=== PATIENT | female | born 1960 | race Caucasian/White ===

== ENCOUNTER 2017-08-16 12:42 | Emergency (ER) | payer MEDICAID ==
[2017-08-16] MEDS ORDERED: Aspirin 81 MG Tab.Chew PO ONE (13:07)
[2017-08-16] MEDS ORDERED: Alum Hydrox/Mag Hydrox/Simeth 15 ML, Lidocaine 2% 15 ML PO ONE ×2 (13:08)
--- NOTE | 2017-08-16 13:15 | EDM.PDOC ---
ED HPI GENERAL MEDICAL PROBLEM - General Chief Complaint: Chest Pain Stated Complaint: PAIN IN CHEST AND LEFT ARM HURTS AND LIP TINGLES Time Seen by Provider: 08/16/17 12:53 Source of Information: Reports: Patient, RN Notes Reviewed History Limitations: Reports: No Limitations - History of Present Illness INITIAL COMMENTS - FREE TEXT/NARRATIVE: 56-year-old female presents emergency department today complaint of chest pain, she has a known history of gastroesophageal reflux disease and has been out of her medications for the last 4 days also has a family history of coronary artery disease with her brother receiving stents at age 38 and her mother with a bypass at age 58. States over the last 4 days the pain finally gets worse with exertion she will become short of breath and diaphoretic with nausea however symptoms resolve to minimal rates it may be a 3 out of 10 but can exacerbate to an 8 or 9 out of 10 with chest tightness. She also describes heartburn-like symptomology similar to heartburn she's had in the past that was controlled by Nexium - Related Data Allergies Allergy/AdvReac Type Severity Reaction Status Date / Time adhesive Allergy Rash Verified 09/26/16 14:16 Penicillins Allergy Itching Verified 09/26/16 14:16 Home Meds: Home Meds Doxycycline [Vibramycin] 100 mg PO Q12H 03/24/14 [History] Gabapentin [Gabapentin] 600 mg PO BID 03/24/14 [History] Ipratropium [Atrovent 0.03% Nasal [place]] 1 spray NASIR TID 03/24/14 [History] LORazepam [Ativan] 2 tab PO BEDTIME 03/24/14 [History] Lisinopril [Prinivil] 20 mg PO DAILY 03/24/14 [History] traMADol [Ultram] 150 mg PO TID PRN 03/24/14 [History] Budesonide/Formoterol [Symbicort 160-4.5 MCG] 1 puff INH BID 08/16/17 [History] Past Medical History HEENT History: Reports: Glaucoma, Impaired Vision, Other (See Below) Other HEENT History: deviated nasal septum chronic sinusitis TMJ arthralaiga Cardiovascular History: Reports: High Cholesterol, Hypertension Respiratory History: Reports: Asthma Gastrointestinal History: Reports: Diverticulosis, Other (See Below) Other Gastrointestinal History: daiphragmatic hernia 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: 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: Other (See Below) Other OB/BYN History: S/P BROOK-BSO cystic breast Musculoskeletal History: Reports: Back Pain, Chronic, Fibromyalgia, Other (See Below) Other Musculoskeletal History: spinal cord injury scoliosis Fx back bone spurs Neurological History: Reports: Concussion, Headaches, Chronic, Head Trauma, Other (See Below) Other Neuro History: insomnia Hematologic History: Reports: Blood Transfusion(s) - Infectious Disease History Infectious Disease History: Reports: Chicken Pox, Shingles Social & Family History - Family History Cardiac: Reports: CAD, [place], Stent - Tobacco Use Smoking Status *Q: Never Smoker Second Hand Smoke Exposure: No - Caffeine Use Caffeine Use: Reports: None - Alcohol Use Days Per Week of Alcohol Use: 0 - Recreational Drug Use Recreational Drug Use: No ED ROS GENERAL - Review of Systems Review Of Systems: See Below Constitutional: Reports: No Symptoms HEENT: Reports: No Symptoms Respiratory: Reports: Shortness of Breath Cardiovascular: Reports: Chest Pain GI/Abdominal: Reports: Nausea, Other (Reflux symptomology). Denies: Abdominal Pain, Vomiting : Reports: No Symptoms Musculoskeletal: Reports: No Symptoms Skin: Reports: No Symptoms Neurological: Reports: No Symptoms Psychiatric: Reports: Anxiety ED EXAM, GENERAL - Physical Exam Exam: See Below Free Text/Narrative:: General: Female, not in any distress, alert and oriented x3 HEENT: head is atraumatic normocephalic, eyes pupils equal round reactive to light, sclera clear no conjunctivitis appreciated. Ears tympanic membranes clear and mijares landmarks and light reflex are present bilaterally canals are clear. Nose no septal deviation, nares are clear, no blood present. Mouth mucosa is moist and pink no erythema or exudate noted in soft palate, tongue is midline uvula is midline, dentition is intact. Neck: Supple no thyromegaly no tracheal deviation. Nodes: Cervical nodes subclavicular nodes nontender no palpable lymphadenopathy noted. Lungs: clear to auscultation bilaterally with symmetrical respirations, no adventitious noise appreciated. CV: Regular rate and rhythm S1 and S2 appreciated no murmurs rubs or gallops noted. Chest wall tender to palpation along the left mid axillary line Abdomen: Soft, nontender, no palpable masses or organomegaly appreciated, no distention no guarding bowel sounds are present, . Neuro: Cranial nerves II through XII grossly intact Skin: Warm and dry, intact Extremities: No lower extremity edema appreciated, Course - Vital Signs Last Recorded V/S: Last Vital Signs Temp 96.5 F 08/16/17 13:00 Pulse 110 H 08/16/17 13:00 Resp 14 08/16/17 13:00 BP 179/120 H 08/16/17 15:00 Pulse Ox 97 08/16/17 13:00 - Orders/Labs/Meds Orders: Active Orders 24 hr Category Date Time Status Cardiac Monitoring [RC] .As Directed Care 08/16/17 13:07 Active EKG Documentation Completion [RC] ASDIRECTED Care 08/16/17 13:07 Active EKG 12 Lead [EK] Stat Ther 08/16/17 13:07 Ordered Labs: Laboratory Tests 08/16/17 08/16/17 Range/Units 13:22 13:22 WBC 9.1 (4.5-11.0) K/uL RBC 4.16 (3.30-5.50) M/uL Hgb 13.1 (12.0-15.0) g/dL Hct 37.9 (36.0-48.0) % MCV 91 (80-98) fL MCH 32 H (27-31) pg MCHC 35 (32-36) % Plt Count 329 (150-400) K/uL Neut % (Auto) 73 H (36-66) % Lymph % (Auto) 16 L (24-44) % Stanley % (Auto) 5 (2-6) % Eos % (Auto) 5 H (2-4) % Baso % (Auto) 1 (0-1) % Sodium 130 L (140-148) mmol/L Potassium 4.0 (3.6-5.2) mmol/L Chloride 96 L (100-108) mmol/L Carbon Dioxide 27 (21-32) mmol/L Anion Gap 11.0 (5.0-14.0) mmol/L BUN 9 (7-18) mg/dL Creatinine 0.8 (0.6-1.0) mg/dL Est Cr Clr Drug Dosing TNP Estimated GFR (MDRD) > 60 (>60) Glucose 101 (74-106) mg/dL Calcium 8.3 L (8.5-10.1) mg/dL Total Bilirubin 0.2 (0.2-1.0) mg/dL AST 25 (15-37) U/L ALT 28 (12-78) U/L Alkaline Phosphatase 101 (46-116) U/L Troponin I < 0.017 (0.000-0.056) ng/mL Total Protein 7.0 (6.4-8.2) g/dL Albumin 3.5 (3.4-5.0) g/dL Globulin 3.5 (2.3-3.5) g/dL Albumin/Globulin Ratio 1.0 L (1.2-2.2) Meds: Medications Discontinued Medications Generic Name Dose Route Start Last Admin Trade Name Freq PRN Reason Stop Dose Admin Amlodipine Besylate 5 mg 08/16/17 14:13 08/16/17 14:19 Norvasc PO 08/16/17 14:14 5 mg ONETIME ONE Administration Aspirin 324 mg 08/16/17 13:07 08/16/17 13:18 Aspirin PO 08/16/17 13:08 324 mg ONETIME ONE Administration Al Hydroxide/Mg Hydroxide 15 0 ml 08/16/17 13:08 08/16/17 13:25 ml/ Lidocaine HCl 15 ml PO 08/16/17 13:09 15 ml ONETIME ONE Administration Ketorolac Tromethamine 60 mg 08/16/17 14:13 08/16/17 14:20 Toradol IM 08/16/17 14:14 60 mg ONETIME ONE Administration Lorazepam 1 mg 08/16/17 13:49 Ativan PO 08/16/17 13:50 ONETIME ONE Departure - Departure Time of Disposition: 15:29 Disposition: Home, Self-Care 01 Condition: Good Clinical Impression: Gastroesophageal reflux disease Qualifiers: Esophagitis presence: esophagitis presence not specified Qualified Code(s): K21.9 - Gastro-esophageal reflux disease without esophagitis Referrals: PCP,None [Primary Care Provider] - Forms: ED Department Discharge, ED Summary Discharge Additional Instructions: Please resume your Nexium, please start your second blood pressure medication of amlodipine, Please followup with your primary care provider in 3-5 days if not better, please call return to the emergency department with worsening of symptoms. - My Orders Last 24 Hours: My Active Orders 08/16/17 13:07 Cardiac Monitoring [RC] .As Directed EKG Documentation Completion [RC] ASDIRECTED EKG 12 Lead [EK] Stat - Assessment/Plan Last 24 Hours: My Active Orders 08/16/17 13:07 Cardiac Monitoring [RC] .As Directed EKG Documentation Completion [RC] ASDIRECTED EKG 12 Lead [EK] Stat Plan: Assessment Acuity = acute Site and laterality = gastroesophageal reflux disease complicated with hypertension poor control Etiology = poor control secondary to a lot of medications Manifestations = chest pain symptoms Location of injury = Home Lab values = CBC unremarkable sodium low at 1:30 consistent hyponatremia troponin is negative, EKG demonstrates a normal sinus rhythm no ST changes or depressions, heart score is 2 Plan I did review lab work with her as well as EKG and troponin results, she received significant relief from a GI cocktail her blood pressure did improve when we started her second blood pressure medication of amlodipine which she has not begun yet. Vascular follow-up with her primary care in 3-5 days for reevaluation Patient was in agreement with the plan all questions were answered, they were instructed to return to the emergency department or call for worsening symptoms. This note was dictated using [employer] voice recognition software please call with any questions.
--- NOTE | 2017-08-16 13:48 | CR ---
Chest 2V HISTORY: Chest Pain COMPARISON: None FINDINGS: Lungs appear clear and normally aerated. Cardiomediastinal silhouette is within normal limits. There is no pneumothorax. No vascular redistribution or pleural fluid can be seen. There are mild gentle ch anges along the thoracic spine. IMPRESSION: No acute chest abnormality is identified.
[2017-08-16] MEDS ORDERED: LORazepam 1 MG Tab PO ONE (13:49)
[2017-08-16] MEDS ORDERED: Ketorolac 60 MG/2 ML SDV IM ONE (14:13)
[2017-08-16] MEDS ORDERED: amLODIPine 5 MG Tab PO ONE (14:13)
[2017-08-16 15:01] VITALS: BP 179/120
== END 2017-08-16 15:37 | disposition home or self-care (01) ==
LOC: JP.ED 12:42
DX: K21.9 Gastro-esophageal reflux disease without esophagitis (principal); I10 Essential (primary) hypertension; E78.00 Pure hypercholesterolemia, unspecified; J45.909 Unspecified asthma, uncomplicated; Z79.899 Other long term (current) drug therapy; Z88.0 Allergy status to penicillin; Z91.048 Other nonmedicinal substance allergy status
CPT/HCPCS: 36415; 71020; 80053; 84484; 85025; 93005; 96372; 99285; A9270; J1885; 93010; 99284

== ENCOUNTER 2019-01-05 14:08 | Emergency (ER) | payer MEDICAID ==
[2019-01-05] MEDS ORDERED: Acetaminophen 500 MG Tab PO ONE (15:43)
[2019-01-05] MEDS ORDERED: Labetalol 100 MG Tab PO ONE (15:43)
--- NOTE | 2019-01-05 15:50 | EDM.PDOC ---
ED HPI GENERAL MEDICAL PROBLEM - General Chief Complaint: Headache Stated Complaint: HIGH BP/ TINGLY FINGERS Time Seen by Provider: 01/05/19 15:35 Source of Information: Reports: Patient, Old Records, RN History Limitations: Reports: Other (incomplete records, patient not a good historian) - History of Present Illness INITIAL COMMENTS - FREE TEXT/NARRATIVE: 58 yo female presents with a SHARP and elevated BP. She is on lisinopril 20 mg bid and tolerating this. Recently she had nifedipine given and she is not tolerating this. She called last Sun/ regarding the intolerance and no one has gotten back to her. In the meantime her BP has been rising so now she has this SHARP. BP at home was 220/120. Her primary is in [place]. Here with her son. Last blood work was in August. Says she drinks a lot of water. 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 (see below) (Lisinopril only) Headache Pain Score (Numeric/FACES): 8 - Related Data Allergies Allergy/AdvReac Type Severity Reaction Status Date / Time adhesive Allergy Rash Verified 01/05/19 14:54 Penicillins Allergy Itching Verified 01/05/19 14:54 Home Meds: Home Meds Doxycycline [Vibramycin] 100 mg PO DAILY 03/24/14 [History] Gabapentin 300 mg PO BID 03/24/14 [History] Ipratropium [Atrovent 0.03% Nasal [place]] 1 spray NASIR TID 03/24/14 [History] LORazepam [Ativan] 2 tab PO BEDTIME 03/24/14 [History] Lisinopril [Prinivil] 20 mg PO BID 03/24/14 [History] traMADol [Ultram] 150 mg PO TID PRN 03/24/14 [History] Budesonide/Formoterol [Symbicort 160-4.5 MCG] 1 puff INH BID 08/16/17 [History] Past Medical History HEENT History: Reports: Glaucoma, Impaired Vision, Other (See Below) Other HEENT History: deviated nasal septum chronic sinusitis TMJ arthralaiga Cardiovascular History: Reports: High Cholesterol, Hypertension Respiratory History: Reports: Asthma Gastrointestinal History: Reports: Diverticulosis, Other (See Below) Other Gastrointestinal History: daiphragmatic hernia 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: Other (See Below) Other BACTERIOLOGY TECHNICIAN History: S/P BROOK-BSO cystic breast Musculoskeletal History: Reports: Back Pain, Chronic, Fibromyalgia, Other (See Below) Other Musculoskeletal History: spinal cord injury scoliosis Fx back bone spurs Neurological History: Reports: Concussion, Headaches, Chronic, Head Trauma, Other (See Below) Other Neuro History: insomnia Psychiatric History: Reports: Anxiety Hematologic History: Reports: Blood Transfusion(s) - Infectious Disease History Infectious Disease History: Reports: Chicken Pox, Shingles Social & Family History - Family History Cardiac: Reports: CAD, [place], Stent - Tobacco Use Smoking Status *Q: Never Smoker Second Hand Smoke Exposure: No - Caffeine Use Caffeine Use: Reports: None - Recreational Drug Use Recreational Drug Use: No ED ROS GENERAL - Review of Systems Review Of Systems: See Below Constitutional: Reports: No Symptoms HEENT: Reports: No Symptoms Respiratory: Reports: No Symptoms Cardiovascular: Reports: No Symptoms Endocrine: Reports: No Symptoms GI/Abdominal: Reports: No Symptoms : Reports: No Symptoms Musculoskeletal: Reports: No Symptoms Skin: Reports: No Symptoms Neurological: Reports: Headache Psychiatric: Reports: No Symptoms - Physical Exam Exam: See Below Exam Limited By: No Limitations General Appearance: Alert, WD/WN, No Apparent Distress Eye Exam: Bilateral Eye: EOMI, Normal Inspection, PERRL Ears: Normal External Exam, Normal Canal, Hearing Grossly Normal, Normal TMs Nose: Normal Inspection, Normal Mucosa, No Blood Throat/Mouth: Normal Inspection, Normal Lips, Normal Oropharynx, Normal Voice, No Airway Compromise Head Exam: Atraumatic, Normocephalic Neck: Normal Inspection, Non-Tender Respiratory/Chest: No Respiratory Distress, Lungs Clear, Normal Breath Sounds, No Accessory Muscle Use Cardiovascular: Regular Rate, Rhythm, No Edema GI/Abdominal: Normal Bowel Sounds, Soft, Non-Tender, No Distention Neuro Exam (Abbreviated): Alert, Oriented, CN II-XII Intact, Normal Cognition, No Motor/Sensory Deficits Back Exam: Normal Inspection. No: CVA Tenderness (R), CVA Tenderness (L) Extremities: Normal Inspection, Normal Range of Motion, Non-Tender, No Pedal Edema Psychiatric: Normal Affect, Normal Mood Skin Exam: Warm, Dry, Intact, Normal Color, No Rash EKG INTERPRETATION EKG Date: 01/05/19 Time: 17:55 Rhythm: NSR Rate (Beats/Min): 70 Goodman: Normal P-Wave: Present QRS: Normal ST-T: Normal QT: Normal Comparison: No Change Course - Vital Signs Last Recorded V/S: Last Vital Signs Temp 36.3 C 01/05/19 14:57 Pulse 71 01/05/19 17:17 Resp 16 01/05/19 14:57 BP 160/98 H 01/05/19 17:30 Pulse Ox 98 01/05/19 16:43 - Orders/Labs/Meds Orders: Active Orders 24 hr Category Date Time Status EKG Documentation Completion [RC] ASDIRECTED Care 01/05/19 17:44 Active EKG 12 Lead [EK] Routine Ther 01/05/19 17:44 Ordered Labs: Laboratory Tests 01/05/19 01/05/19 Range/Units 15:55 15:55 Sodium 128 L (140-148) mmol/L Potassium 3.9 (3.6-5.2) mmol/L Chloride 94 L (100-108) mmol/L Carbon Dioxide 26 (21-32) mmol/L Anion Gap 11.9 (5.0-14.0) mmol/L BUN 22 H D (7-18) mg/dL Creatinine 1.0 (0.6-1.0) mg/dL Est Cr Clr Drug Dosing 47.32 mL/min Estimated GFR (MDRD) 57 L (>60) Glucose 84 (74-106) mg/dL Calcium 8.8 (8.5-10.1) mg/dL Troponin I < 0.017 (0.000-0.056) ng/mL Meds: Medications Discontinued Medications Generic Name Dose Route Start Last Admin Trade Name Freq PRN Reason Stop Dose Admin Acetaminophen 1,000 mg 01/05/19 15:43 01/05/19 15:51 Tylenol Extra Strength PO 01/05/19 15:44 1,000 mg ONETIME ONE Administration Alprazolam 0.5 mg 01/05/19 16:25 01/05/19 16:30 Xanax PO 01/05/19 16:26 0.5 mg NOW ONE Administration Sodium Chloride 1,000 mls @ 1,000 mls/hr 01/05/19 16:23 01/05/19 16:54 Normal Saline IV 01/05/19 17:22 1,000 mls/hr .BOLUS ONE Administration Labetalol HCl 100 mg 01/05/19 15:43 01/05/19 15:51 Normodyne PO 01/05/19 15:44 100 mg ONETIME ONE Administration Departure - Departure Time of Disposition: 18:15 Disposition: Home, Self-Care 01 Condition: Fair Clinical Impression: HTN (hypertension) Qualifiers: Hypertension type: essential hypertension Qualified Code(s): I10 - Essential ( primary) hypertension - Discharge Information *PRESCRIPTION DRUG MONITORING PROGRAM REVIEWED*: No *COPY OF PRESCRIPTION DRUG MONITORING REPORT IN PATIENT MORIAH: No Instructions: Hypertension, [id number] Referrals: Andrea Hernandez MD [Primary Care Provider] - Forms: ED Department Discharge Additional Instructions: Take labetolol 100 mg every 12 hrs in addition to your lisinopril. Recheck with your doctor later this week. Return here as needed. - My Orders Last 24 Hours: My Active Orders 01/05/19 17:44 EKG Documentation Completion [RC] ASDIRECTED EKG 12 Lead [EK] Routine - Assessment/Plan Last 24 Hours: My Active Orders 01/05/19 17:44 EKG Documentation Completion [RC] ASDIRECTED EKG 12 Lead [EK] Routine
[2019-01-05] MEDS ORDERED: Sodium Chloride 0.9% 1,000 ML IV ONE (16:23)
[2019-01-05] MEDS ORDERED: ALPRAZolam 0.5 MG Tab PO ONE (16:25)
[2019-01-05 17:31] VITALS: BP 160/98
== END 2019-01-05 18:22 | disposition home or self-care (01) ==
LOC: JP.ED 14:08
DX: I10 Essential (primary) hypertension (principal); E78.00 Pure hypercholesterolemia, unspecified; Z91.09 Other allergy status, other than to drugs and biological substances; Z79.899 Other long term (current) drug therapy; Z88.0 Allergy status to penicillin
CPT/HCPCS: 36415; 80048; 84484; 93005; 96360; 99284; A9270; J7030; 99283

== ENCOUNTER 2019-11-07 11:46 | Emergency (ER) | payer MEDICAID ==
[2019-11-07 12:01] VITALS: BP 179/125; PULSE 100
--- NOTE | 2019-11-07 12:16 | EDM.PDOC ---
ED HPI GENERAL MEDICAL PROBLEM - General Chief Complaint: Respiratory Problem Stated Complaint: COUGHING Time Seen by Provider: 11/07/19 12:15 Source of Information: Reports: Patient History Limitations: Reports: No Limitations - History of Present Illness INITIAL COMMENTS - FREE TEXT/NARRATIVE: 59-year-old female with chronic significant persistent asthma, chronic cough, severe anxiety, and perceived shortness of breath and mass sensation in her upper airway. She has been seen several times over the past 2 or 3 months and placed on antibiotics twice, the second time accompanied by steroids. She claims "nothing helps". She does not smoke but does live with 2 dogs and has a history of an allergy to animal dander. She insists she is not allergic to her dogs. She denies any fevers or chills, she has some productive sputum intermittent, no hemoptysis. She has a very remote history of PE, that was years ago and is not on anticoagulation at this time. She is starting to develop upper abdominal and lower chest pain from the coughing. Onset: Unknown/Unsure (Symptoms have been ongoing for months, worse the last several days) Associated Symptoms: Reports: Chest Pain (With coughing), Cough (Some productive sputum), Malaise, Shortness of Breath (Especially with any activity) . Denies: Confusion, Fever/Chills, Nausea/Vomiting, Weakness Headache Pain Score (Numeric/FACES): 8 - Related Data Allergies Allergy/AdvReac Type Severity Reaction Status Date / Time adhesive Allergy Rash Verified 11/07/19 12:02 ketorolac [From Toradol] Allergy Confusion Verified 11/07/19 12:21 metoprolol Allergy Other Verified 11/07/19 12:21 milnacipran Allergy Other Verified 11/07/19 12:21 Penicillins Allergy Itching Verified 11/07/19 12:02 amlodipine AdvReac Other Verified 11/07/19 12:21 dog dander AdvReac Other Verified 11/07/19 12:21 esomeprazole AdvReac Itching Verified 11/07/19 12:21 Home Meds: Home Meds Gabapentin 300 mg PO BID 03/24/14 [History] Ipratropium [Atrovent 0.03% Nasal [place]] 1 spray NASIR TID 03/24/14 [History] LORazepam [Ativan] 2 tab PO BEDTIME 04/29/14 [History] Lisinopril [Prinivil] 20 mg PO BID 03/24/14 [History] traMADol [Ultram] 150 mg PO TID PRN 03/24/14 [History] Budesonide/Formoterol [Symbicort 160-4.5 MCG] 1 puff INH BID 08/16/17 [History] Cyclobenzaprine [Flexeril] 10 mg PO ASDIRECTED 11/07/19 [History] Dextroamphetamine/Amphetamine [Adderall 10 mg Tablet] 10 mg PO BID 11/07/19 [ History] Esomeprazole [NexIUM] 40 mg PO BID 11/07/19 [History] Glycopyrrolate 2 mg PO ASDIRECTED PRN 11/07/19 [History] Meloxicam 15 mg PO ASDIRECTED 11/07/19 [History] Montelukast [Singulair] 10 mg PO DAILY 11/07/19 [History] Sennosides [Senna] 2 tab PO BID 11/07/19 [History] Sucralfate [Carafate] 10 ml PO QID 11/07/19 [History] guaiFENesin [Mucinex] 600 mg PO BID 11/07/19 [History] Past Medical History HEENT History: Reports: Glaucoma, Impaired Vision, Other (See Below) Other HEENT History: deviated nasal septum chronic sinusitis TMJ arthralaiga Cardiovascular History: Reports: High Cholesterol, Hypertension Respiratory History: Reports: Asthma Gastrointestinal History: Reports: Diverticulosis, Other (See Below) Other Gastrointestinal History: daiphragmatic hernia, stomach ulcers requiring surgery Genitourinary History: Reports: None [employer] History: Reports: , Spontaneous , Other (See Below) Other [employer] History: S/P BROOK-BSO cystic breast Musculoskeletal History: Reports: Back Pain, Chronic, Fibromyalgia, Other (See Below) Other Musculoskeletal History: spinal cord injury scoliosis Fx back bone spurs Neurological History: Reports: Concussion, Headaches, Chronic, Head Trauma, Other (See Below) Other Neuro History: insomnia Psychiatric History: Reports: Anxiety Hematologic History: Reports: Blood Transfusion(s) Dermatologic History: Reports: Other (See Below) - Infectious Disease History Infectious Disease History: Reports: Chicken Pox, Shingles - Past Surgical History Head Surgeries/Procedures: Reports: None HEENT Surgical History: Reports: Tonsillectomy Cardiovascular Surgical History: Reports: None Respiratory Surgical History: Reports: None GI Surgical History: Reports: Appendectomy Female Surgical History: Reports: Hysterectomy Neurological Surgical History: Reports: None Musculoskeletal Surgical History: Reports: Shoulder Surgery Dermatological Surgical History: Reports: None Social & Family History - Family History Cardiac: Reports: CAD, [place], Stent - Tobacco Use Smoking Status *Q: Never Smoker Second Hand Smoke Exposure: No - Caffeine Use Caffeine Use: Reports: None - Recreational Drug Use Recreational Drug Use: No ED ROS GENERAL - Review of Systems Review Of Systems: See Below Constitutional: Reports: Malaise. Denies: Fever, Chills HEENT: Denies: Throat Pain Respiratory: Reports: Shortness of Breath, Wheezing, Cough, Sputum. Denies: Hemoptysis Cardiovascular: Reports: Chest Pain (Anterior substernal chest pain with coughing), Lightheadedness. Denies: Syncope GI/Abdominal: Reports: Abdominal Pain (Upper abdominal muscles are sore from coughing). Denies: Nausea, Vomiting : Reports: No Symptoms Neurological: Reports: Dizziness. Denies: Headache Psychiatric: Reports: Anxiety (Significant anxiety) ED EXAM, GENERAL - Physical Exam Exam: See Below Exam Limited By: No Limitations General Appearance: Alert, Anxious, Mild Distress, Other (Patient does have intermittent coughing spells which are persistent and at times last 1 to 2 minutes, she looks fairly uncomfortable.) Eye Exam: Bilateral Eye: Normal Inspection Head: Atraumatic Respiratory/Chest: No Respiratory Distress, Rhonchi, Wheezing (A few scattered rhonchi and wheezes are heard bilaterally, especially posterior) Cardiovascular: Regular Rate, Rhythm, Tachycardia (Mild tachycardia) GI/Abdominal: Non-Tender Neurological: Alert, Oriented Psychiatric: Anxious Skin Exam: Warm, Dry Course - Vital Signs Last Recorded V/S: Last Vital Signs Temp 96.4 F 11/07/19 12:05 Pulse 100 11/07/19 12:05 Resp 20 11/07/19 12:05 BP 179/125 H 11/07/19 12:05 Pulse Ox 97 11/07/19 12:05 - Orders/Labs/Meds Orders: Active Orders 24 hr Category Date Time Status RT Aerosol Therapy [RC] ASDIRECTED Care 11/07/19 12:25 Active Labs: Laboratory Tests 11/07/19 11/07/19 11/07/19 Range/Units 12:54 13:01 13:01 WBC 8.3 (4.5-11.0) K/uL RBC 4.22 (3.30-5.50) M/uL Hgb 12.8 (12.0-15.0) g/dL Hct 37.7 (36.0-48.0) % MCV 89 (80-98) fL MCH 30 (27-31) pg MCHC 34 (32-36) % Plt Count 340 (150-400) K/uL Neut % (Auto) 56 (36-66) % Lymph % (Auto) 26 (24-44) % [place] % (Auto) 9 H (2-6) % Eos % (Auto) 8 H (2-4) % Baso % (Auto) 1 (0-1) % Puncture Site Lt radial ABG pH 7.444 (7.350-7.450) ABG pCO2 29.6 L (35.0-42.0) mmHg ABG pO2 50.2 L (75.0-100.0) mmHg ABG HCO3 20.0 L (22.0-26.0) mmol/L ABG Total CO2 17.7 L (21.0-25.0) mmol/L ABG O2 Saturation 85.4 L (95.0-98.0) % ABG O2 Content 15.3 (15.0-23.0) %vol ABG Base Excess -2.6 mm/L ABG Hemoglobin 13.0 (12.0-16.0) g/dL ABG Oxyhemoglobin 83.9 % ABG Carboxyhemoglobin 1.2 (0.0-1.6) % ABG Methemoglobin 0.6 % [place] Test Passed O2 Delivery Device Room air Sodium 130 L (140-148) mmol/L Potassium 4.0 (3.6-5.2) mmol/L Chloride 97 L (100-108) mmol/L Carbon Dioxide 19 L (21-32) mmol/L Anion Gap 18.0 H (5.0-14.0) mmol/L BUN 12 (7-18) mg/dL Creatinine 0.8 (0.6-1.0) mg/dL Est Cr Clr Drug Dosing 58.41 mL/min Estimated GFR (MDRD) > 60 (>60) Glucose 114 H (74-106) mg/dL Calcium 8.6 (8.5-10.1) mg/dL Total Bilirubin 0.2 (0.2-1.0) mg/dL AST 20 (15-37) U/L ALT 22 (12-78) U/L Alkaline Phosphatase 86 (46-116) U/L Total Protein 6.7 (6.4-8.2) g/dL Albumin 3.6 (3.4-5.0) g/dL Globulin 3.1 (2.3-3.5) g/dL Albumin/Globulin Ratio 1.2 (1.2-2.2) Meds: Medications Discontinued Medications Generic Name Dose Route Start Last Admin Trade Name Freq PRN Reason Stop Dose Admin Albuterol/Ipratropium 3 ml 11/07/19 12:24 11/07/19 12:30 Duoneb 3.0-0.5 Mg/3 Ml NEB 11/07/19 12:25 3 ml ONETIME ONE Administration Sodium Chloride 1,000 mls @ 1,000 mls/hr 11/07/19 13:45 11/07/19 14:01 Normal Saline IV 1,000 mls/hr ASDIRECTED JONNATHAN Administration Sodium Chloride 79 mls @ 3 mls/sec 11/07/19 14:45 11/07/19 14:47 Normal Saline IV 3 mls/sec ASDIRECTED JONNATHAN Administration Iopamidol 100 ml 11/07/19 14:32 Isovue-300 (61%) IV 11/07/19 14:33 . DIRECTED ONE Iopamidol 100 ml 11/07/19 14:39 11/07/19 14:47 Isovue-370 (76%) IV 11/07/19 14:40 70 ml . DIRECTED ONE Administration Lorazepam 1 mg 11/07/19 13:47 11/07/19 14:00 Ativan IVPUSH 11/07/19 13:48 1 mg ONETIME ONE Administration Methylprednisolone Sodium Succinate 125 mg 11/07/19 12:24 11/07/19 12:32 Solu-Medrol IVPUSH 11/07/19 12:25 125 mg ONETIME ONE Administration - Re-Assessments/Exams Free Text/Narrative Re-Assessment/Exam: 11/07/19 14:00 A DuoNeb was given and a two-view chest x-ray obtained. Chest x-ray looks normal. The DuoNeb did give her some temporary objective and subjective improvement. Within 10 to 15 minutes after the nebulizer she again resumed her persistent coughing, became tearful and very anxious. A CBC, CMP and blood gases on room air was then obtained. Although her O2 saturations remain 94 to 100%, her PO2 is only 50 with a PCO2 of 29. pH is normal at 7.44. HCO3 is also low. This patient seems to have a mixed respiratory picture with chronic hyperventilation but also chronic hypoxia. She was given 125 mg of IV Solu- Medrol, and a discussion was had with surgery regarding a possible bronchoscopy. CT of the chest with IV contrast will be obtained first. She was given 1 mg of IV Ativan because of her significant anxiety. 11/07/19 14:41 Within 10 minutes of the IV Ativan, the patient had calmed down, was texting on her phone and had no significant cough or shortness of breath. 11/07/19 15:26 CT scan was negative for PE, there was one small area of possible pneumonia on the left. Hilar area. There was also diffuse mild bronchial thickening typical of bronchitis. These were discussed with the patient, her cough started to return prior to discharge. She will be placed on a course of Zithromax, and a Medrol Dosepak through the next 4 days. Recheck early next week if not significant improvement. Departure - Departure Time of Disposition: 15:37 Disposition: Home, Self-Care 01 Clinical Impression: Chronic bronchitis Qualifiers: Chronic bronchitis type: unspecified Qualified Code(s): J42 - Unspecified chronic bronchitis - Discharge Information Instructions: Chronic Bronchitis Referrals: PCP,None [Primary Care Provider] - Forms: ED Department Discharge Care Plan Goals: Take Medrol Dosepak as prescribed, also take Zithromax as directed. Continue your current medications. Recheck next week if not improving satisfactorily. Sepsis Event Note - Evaluation Sepsis Screening Result: No Definite Risk - Focused Exam Date Exam was Performed: 11/08/19 Time Exam was Performed: 07:08 - My Orders Last 24 Hours: My Active Orders 11/07/19 12:25 RT Aerosol Therapy [RC] ASDIRECTED - Assessment/Plan Last 24 Hours: My Active Orders 11/07/19 12:25 RT Aerosol Therapy [RC] ASDIRECTED
[2019-11-07] MEDS ORDERED: methylPREDNISolone Sodium Succinate 125 MG/2 ML SDV IVPUSH ONE (12:24)
[2019-11-07] MEDS ORDERED: Albuterol/Ipratropium 3.0-0.5 MG/3 ML Neb Soln NEB ONE (12:24)
--- NOTE | 2019-11-07 12:45 | CRLCR ---
INDICATION: Dyspnea TECHNIQUE: Chest 2 views COMPARISON: 08/16/2017 FINDINGS: Cardiovascular and mediastinum: Heart size and vasculature are normal in caliber and appearance. Lungs and pleural spaces: Lungs are hyperinflated but otherwise clear. No sign of infiltrate or mass. No sign of pleural effusion. No pneumothorax. Bones and soft tissues: No significant findings. IMPRESSION: Lung hyperinflation suggesting COPD. Otherwise unremarkable chest. No other finding to explain dyspnea. Dictated by Daryl Barron MD @ 11/07/2019 12:44:05 PM Dictated by: Daryl Barron MD @ 11/07/2019 12:44:10 (Electronically Signed)
[2019-11-07] MEDS ORDERED: Sodium Chloride 0.9% 1,000 ML IV SCH (13:45)
[2019-11-07] MEDS ORDERED: LORazepam 2 MG/ML SDV IVPUSH ONE (13:47)
[2019-11-07] MEDS ORDERED: Iopamidol 612 MG/ML 100 ML Bottle IV ONE (14:32)
[2019-11-07] MEDS ORDERED: Iopamidol 755 Mg/ML 100 ML Bottle IV ONE (14:39)
--- NOTE | 2019-11-07 15:19 | CRLCT ---
INDICATION: Chronic cough, hypoxia, history of pulmonary embolism TECHNIQUE: CT chest pulmonary PE protocol acquired with 75 cc Isovue 370 IV contrast. COMPARISON: Chest radiograph performed earlier today FINDINGS: Cardiovascular structures: Normal vascular enhancement of the pulmonary arteries, no sign of pulmonary embolism. Heart size is normal. No sign of aneurysm in the thoracic aorta. Mediastinum and harsh: No mass or adenopathy. Lungs: Small focus of patchy infiltrate in the left infrahilar region image 77 series 6. There is mild perihilar bronchial wall thickening. Pleura and pericardium: No effusions. Chest wall and axilla: No mass or adenopathy. Upper abdomen: Unremarkable. Bones: No significant findings. IMPRESSION: No pulmonary embolism. Small focus of patchy infiltrate in the left infrahilar region concerning for pneumonia. Mild perihilar bronchial wall thickening may represent bronchitis. Please note that all CT scans at this facility use dose modulation, iterative reconstruction, and/or weight-based dosing when appropriate to reduce radiation dose to as low as reasonably achievable. Dictated by Lizzy Francis MD @ Nov 07 2019 3:17PM Signed by Dr. Lizzy Francis @ Nov 07 2019 3:17PM
== END 2019-11-07 15:37 | disposition home or self-care (01) ==
LOC: JP.ED 11:46
DX: J42 Unspecified chronic bronchitis (principal); J45.909 Unspecified asthma, uncomplicated; I10 Essential (primary) hypertension; F41.9 Anxiety disorder, unspecified; Z88.6 Allergy status to analgesic agent; Z88.0 Allergy status to penicillin; Z88.8 Allergy status to other drugs, medicaments and biological substances; Z91.048 Other nonmedicinal substance allergy status; Z91.09 Other allergy status, other than to drugs and biological substances; Z79.51 Long term (current) use of inhaled steroids
CPT/HCPCS: 36415; 36600; 71046; 71275; 80053; 82803; 85025; 94640; 96361; 96374; 96375; 99284-25; J2060; J2930; J7030; J7050; J7620-GY; Q9967

== ENCOUNTER 2021-06-07 11:24 | Emergency (ER) | payer MEDICAID ==
[2021-06-07] MEDS ORDERED: Morphine 2 MG/ML SYRINGE IM ONE (12:22)
--- NOTE | 2021-06-07 12:24 | EDM.PDOC ---
ED HPI GENERAL MEDICAL PROBLEM - General Chief Complaint: Cardiovascular Problem Stated Complaint: HIGH BLOOD PRESSURE Time Seen by Provider: 06/07/21 12:15 Source of Information: Reports: Patient, RN Notes Reviewed History Limitations: Reports: No Limitations - History of Present Illness INITIAL COMMENTS - FREE TEXT/NARRATIVE: 60-year-old female presents emergency department day complaint of chest pain, she was initially evaluated in clinic complaint of chest pain and worst. Headache of her life I did talk to the provider in the clinic Malissa Shaw who then referred her to the emergency department for further evaluation. She states his had chest pain for about a month recently diagnosed with pneumonia on 31 May treated with Augmentin states some things of the breathing have improved but she still having ongoing chest pain pain is worse with a deep breath and she still gets short of breath with exertion that has not improved. Has no history of cardiac disease an EKG was provided from the clinic shows no ST elevations or depressions sinus rhythm. She states her headache now has resolved - Related Data Allergies Allergy/AdvReac Type Severity Reaction Status Date / Time adhesive Allergy Rash Verified 06/07/21 11:50 ketorolac [From Toradol] Allergy Confusion Verified 06/07/21 11:50 metoprolol Allergy Other Verified 06/07/21 11:50 milnacipran Allergy Other Verified 06/07/21 11:50 Penicillins Allergy Itching Verified 06/07/21 11:50 amlodipine AdvReac Other Verified 06/07/21 11:50 dog dander AdvReac Other Verified 06/07/21 11:50 esomeprazole AdvReac Itching Verified 06/07/21 11:50 Home Meds: Home Meds Gabapentin 300 mg PO BID 03/24/14 [History] Ipratropium [Atrovent 0.03% Nasal [place]] 1 spray NASIR TID 03/24/14 [History] LORazepam [Ativan] 2 tab PO BEDTIME 03/24/14 [History] lisinopriL [Prinivil] 20 mg PO BEDTIME 03/24/14 [History] traMADol [Ultram] 150 mg PO TID PRN 03/24/14 [History] Budesonide/Formoterol [Symbicort 160-4.5 MCG] 1 puff INH BID 08/16/17 [History] Cyclobenzaprine [Flexeril] 10 mg PO ASDIRECTED 11/07/19 [History] Dextroamphetamine/Amphetamine [Adderall 10 mg Tablet] 10 mg PO BID 11/07/19 [History] Esomeprazole [NexIUM] 40 mg PO BID 11/07/19 [History] Glycopyrrolate 2 mg PO ASDIRECTED PRN 11/07/19 [History] Meloxicam 15 mg PO ASDIRECTED 11/07/19 [History] Sennosides [Senna] 2 tab PO BID 11/07/19 [History] Past Medical History HEENT History: Reports: Glaucoma, Impaired Vision, Other (See Below) Other HEENT History: deviated nasal septum chronic sinusitis TMJ arthralaiga Cardiovascular History: Reports: High Cholesterol, Hypertension Respiratory History: Reports: Asthma Gastrointestinal History: Reports: Diverticulosis, Other (See Below) Other Gastrointestinal History: daiphragmatic hernia, stomach ulcers requiring surgery Genitourinary History: Reports: None 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: , 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 , Other (See Below) 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: S/P BROOK-BSO cystic breast Musculoskeletal History: Reports: Back Pain, Chronic, Fibromyalgia, Other (See Below) Other Musculoskeletal History: spinal cord injury scoliosis Fx back bone spurs Neurological History: Reports: Concussion, Headaches, Chronic, Head Trauma, Other (See Below) Other Neuro History: insomnia Psychiatric History: Reports: Anxiety Hematologic History: Reports: Blood Transfusion(s) Dermatologic History: Reports: Other (See Below) - Infectious Disease History Infectious Disease History: Reports: Chicken Pox, Shingles - Past Surgical History Head Surgeries/Procedures: Reports: None HEENT Surgical History: Reports: Tonsillectomy Cardiovascular Surgical History: Reports: None Respiratory Surgical History: Reports: None GI Surgical History: Reports: Appendectomy, Other (See Below) Female Surgical History: Reports: Hysterectomy Neurological Surgical History: Reports: None Musculoskeletal Surgical History: Reports: Shoulder Surgery Dermatological Surgical History: Reports: None Social & Family History - Family History Cardiac: Reports: CAD, [place], Stent - Tobacco Use Tobacco Use Status *Q: Never Tobacco User Second Hand Smoke Exposure: No - Caffeine Use Caffeine Use: Reports: None - Recreational Drug Use Recreational Drug Use: No ED ROS GENERAL - Review of Systems Review Of Systems: See Below Constitutional: Reports: No Symptoms HEENT: Reports: No Symptoms Respiratory: Reports: Shortness of Breath. Denies: Wheezing, Cough, Sputum Cardiovascular: Reports: Chest Pain, Dyspnea on Exertion GI/Abdominal: Reports: No Symptoms ED EXAM, GENERAL - Physical Exam Exam: See Below Exam Limited By: No Limitations General Appearance: Alert, WD/WN, No Apparent Distress Neck: Normal Inspection, Supple, Non-Tender, Full Range of Motion Respiratory/Chest: No Respiratory Distress, Lungs Clear, Normal Breath Sounds, No Accessory Muscle Use Cardiovascular: Regular Rate, Rhythm, No Murmur GI/Abdominal: Soft, Non-Tender Course - Vital Signs Last Recorded V/S: Last Vital Signs Temp 97.7 F 06/07/21 11:54 Pulse 61 06/07/21 18:36 Resp 12 06/07/21 18:36 BP 176/107 H 06/07/21 18:36 Pulse Ox 99 06/07/21 18:36 - Orders/Labs/Meds Orders: Active Orders 24 hr Category Date Time Status Cardiac Monitoring [RC] .As Directed Care 06/07/21 12:20 Active Peripheral IV Care [RC] . DIRECTED Care 06/07/21 14:05 Active Iopamidol [Isovue-370 (76%)] Med 06/07/21 14:45 Active 100 ml IV . DIRECTED Sodium Chloride 0.9% [Normal Saline] 1,000 ml Med 06/07/21 14:15 Active IV ASDIRECTED Sodium Chloride 0.9% [Saline Flush] Med 06/07/21 14:05 Active 10 ml FLUSH ASDIRECTED PRN Peripheral IV Insertion Adult [OM.PC] Urgent Oth 06/07/21 14:05 Ordered Medication Orders Sodium Chloride (Normal Saline) 1,000 mls @ 500 mls/hr IV ASDIRECTED JONNATHAN Last Admin: 06/07/21 14:20 Dose: 500 mls/hr Documented by: CORRIE Iopamidol (Iopamidol 755 Mg/Ml 100 Ml Bottle) 100 ml IV . DIRECTED JONNATHAN Sodium Chloride (Sodium Chloride 0.9% 10 Ml Syringe) 10 ml FLUSH ASDIRECTED PRN PRN Reason: Keep Vein Open Last Admin: 06/07/21 14:21 Dose: 10 ml Documented by: CORRIE Labs: Laboratory Tests 06/07/21 06/07/21 06/07/21 Range/Units 12:20 12:20 12:20 WBC 9.4 (4.5-11.0) K/uL RBC 3.99 (3.30-5.50) M/uL Hgb 12.4 (12.0-15.0) g/dL Hct 36.7 (36.0-48.0) % MCV 92 (80-98) fL MCH 31 (27-31) pg MCHC 34 (32-36) % Plt Count 373 (150-400) K/uL Neut % (Auto) 83.2 H (36-66) % Lymph % (Auto) 11.6 L (24-44) % [place] % (Auto) 4.9 (2-6) % Eos % (Auto) 0.1 L (2-4) % Baso % (Auto) 0.2 (0-1) % D-Dimer, Quantitative (0.0-500.0) ng/mL Sodium 136 L (140-148) mmol/L Potassium 4.4 (3.6-5.2) mmol/L Chloride 99 L (100-108) mmol/L Carbon Dioxide 27 (21-32) mmol/L Anion Gap 14.4 H (5.0-14.0) mmol/L BUN 13 (7-18) mg/dL Creatinine 1.1 H (0.6-1.0) mg/dL Est Cr Clr Drug Dosing 41.94 mL/min Estimated GFR (MDRD) 50 L (>60) Glucose 96 (74-106) mg/dL Lactic Acid 0.9 (0.4-2.0) mmol/L Calcium 8.6 (8.5-10.1) mg/dL Total Bilirubin 0.3 (0.2-1.0) mg/dL AST 17 (15-37) U/L ALT 21 (12-78) U/L Alkaline Phosphatase 79 (46-116) U/L Troponin I < 0.017 (0.000-0.056) ng/mL Total Protein 6.0 L (6.4-8.2) g/dL Albumin 3.2 L (3.4-5.0) g/dL Globulin 2.8 (2.3-3.5) g/dL Albumin/Globulin Ratio 1.1 L (1.2-2.2) /13/ Range/Units 12:34 WBC (4.5-11.0) K/uL RBC (3.30-5.50) M/uL Hgb (12.0-15.0) g/dL Hct (36.0-48.0) % MCV (80-98) fL MCH (27-31) pg MCHC (32-36) % Plt Count (150-400) K/uL Neut % (Auto) (36-66) % Lymph % (Auto) (24-44) % [place] % (Auto) (2-6) % Eos % (Auto) (2-4) % Baso % (Auto) (0-1) % D-Dimer, Quantitative 758.74 H (0.0-500.0) ng/mL Sodium (140-148) mmol/L Potassium (3.6-5.2) mmol/L Chloride (100-108) mmol/L Carbon Dioxide (21-32) mmol/L Anion Gap (5.0-14.0) mmol/L BUN (7-18) mg/dL Creatinine (0.6-1.0) mg/dL Est Cr Clr Drug Dosing mL/min Estimated GFR (MDRD) (>60) Glucose (74-106) mg/dL Lactic Acid (0.4-2.0) mmol/L Calcium (8.5-10.1) mg/dL Total Bilirubin (0.2-1.0) mg/dL AST (15-37) U/L ALT (12-78) U/L Alkaline Phosphatase (46-116) U/L Troponin I (0.000-0.056) ng/mL Total Protein (6.4-8.2) g/dL Albumin (3.4-5.0) g/dL Globulin (2.3-3.5) g/dL Albumin/Globulin Ratio (1.2-2.2) Meds: Medications Generic Name Dose Route Start Last Admin Trade Name Freq PRN Reason Stop Dose Admin Sodium Chloride 1,000 mls @ 500 mls/hr 06/07/21 14:15 06/07/21 14:20 Normal Saline IV 500 mls/hr ASDIRECTED JONNATHAN Administration Iopamidol 100 ml 06/07/21 14:45 Iopamidol 755 Mg/Ml 100 Ml Bottle IV . DIRECTED JONNATHAN Sodium Chloride 10 ml 06/07/21 14:05 06/07/21 14:21 Sodium Chloride 0.9% 10 Ml Syringe FLUSH 10 ml ASDIRECTED PRN Administration Keep Vein Open Discontinued Medications Generic Name Dose Route Start Last Admin Trade Name Que PRN Reason Stop Dose Admin Sodium Chloride 100 mls @ 4 mls/sec 06/07/21 14:30 Normal Saline IV 06/07/21 14:31 ASDIRECTED JONNATHAN Sodium Chloride 100 mls @ 3 mls/sec 06/07/21 14:45 Normal Saline IV 06/07/21 18:00 ASDIRECTED JONNATHAN Iopamidol 100 ml 06/07/21 14:30 Iopamidol 755 Mg/Ml 100 Ml Bottle IV 06/07/21 14:31 . DIRECTED JONNATHAN Lorazepam 0.5 mg 06/07/21 15:00 06/07/21 15:29 Lorazepam 2 Mg/Ml Sdv IVPUSH 06/07/21 15:01 0.5 mg ONETIME ONE Administration Morphine Sulfate 2 mg 06/07/21 12:22 06/07/21 12:41 Morphine 2 Mg/Ml Syringe IM 06/07/21 12:23 2 mg ONETIME ONE Administration Sodium Chloride 10 ml 06/07/21 14:19 Sodium Chloride 0.9% 10 Ml Syringe FLUSH 06/07/21 14:20 ONETIME ONE Sodium Chloride 10 ml 06/07/21 14:36 Sodium Chloride 0.9% 10 Ml Sdv FLUSH 06/07/21 14:37 ONETIME ONE Departure - Departure Time of Disposition: 19:03 Disposition: Home, Self-Care 01 Condition: Fair Clinical Impression: Atypical chest pain Instructions: Nonspecific Chest Pain, Adult, [id number] Referrals: Malissa Shaw PA-C [Primary Care Provider] - Forms: ED Department Discharge Additional Instructions: Continue with your regular medications, please followup with your primary care provider in 3-5 days if not better, please call return to the emergency department with worsening of symptoms. Sepsis Event Note (ED) - Evaluation Sepsis Screening Result: No Definite Risk - Focused Exam Vital Signs: Vital Signs Temp Pulse Resp BP Pulse Ox 06/07/21 18:36 61 12 176/107 H 99 06/07/21 17:38 64 18 188/106 H 98 06/07/21 16:05 59 L 12 194/107 H 06/07/21 15:18 59 L 14 189/106 H 100 06/07/21 14:14 62 10 L 193/113 H 100 06/07/21 13:51 60 10 L 188/102 H 100 06/07/21 13:10 60 179/101 H 96 06/07/21 12:40 158/110 H 06/07/21 12:18 85 13 187/121 H 98 06/07/21 12:03 68 8 L 188/131 H 97 06/07/21 11:54 97.7 F 71 11 L 202/108 H 99 06/07/21 11:49 97.7 F 71 11 L 202/108 H 99 06/07/21 11:48 79 11 L 193/129 H 98 - My Orders Last 24 Hours: My Active Orders 06/07/21 12:20 Cardiac Monitoring [RC] .As Directed 06/07/21 14:05 Peripheral IV Care [RC] . DIRECTED Sodium Chloride 0.9% [Saline Flush] 10 ml FLUSH ASDIRECTED PRN Peripheral IV Insertion Adult [OM.PC] Urgent 06/07/21 14:15 Sodium Chloride 0.9% [Normal Saline] 1,000 ml IV ASDIRECTED 06/07/21 14:45 Iopamidol [Isovue-370 (76%)] 100 ml IV . DIRECTED - Assessment/Plan Last 24 Hours: My Active Orders 06/07/21 12:20 Cardiac Monitoring [RC] .As Directed 06/07/21 14:05 Peripheral IV Care [RC] . DIRECTED Sodium Chloride 0.9% [Saline Flush] 10 ml FLUSH ASDIRECTED PRN Peripheral IV Insertion Adult [OM.PC] Urgent 06/07/21 14:15 Sodium Chloride 0.9% [Normal Saline] 1,000 ml IV ASDIRECTED 06/07/21 14:45 Iopamidol [Isovue-370 (76%)] 100 ml IV . DIRECTED Plan: Assessment Acuity = acute Site and laterality = atypical chest pain Etiology = unknown Manifestations = none Location of injury = Home Lab values = CBC unremarkable creatinine elevated 1.1 consistent chronic renal failure stage T3a D-dimer elevated 758 of uncertain significance EKG demonstrates sinus rhythm no ST elevations or depressions CT scan of the chest shows no acute process no pulmonary embolism Plan I did review lab work with her she remained headache free while in the emergency department however the chest pain would still come and go recommended she try nonsteroidal anti-inflammatories and then follow-up with primary care for further evaluation This note was dictated using [employer] voice recognition software please call with any questions on syntax or grammar.
[2021-06-07] MEDS ORDERED: Sodium Chloride 0.9% 10 ML Syringe FLUSH PRN (14:05)
[2021-06-07] MEDS ORDERED: Sodium Chloride 0.9% 1,000 ML IV SCH (14:15)
[2021-06-07] MEDS ORDERED: Sodium Chloride 0.9% 10 ML Syringe FLUSH ONE (14:19)
[2021-06-07] MEDS ORDERED: Iopamidol 755 Mg/ML 100 ML Bottle IV SCH ×2 (14:30→14:45)
[2021-06-07] MEDS ORDERED: Sodium Chloride 0.9% 100 ML IV SCH ×2 (14:30→14:45)
[2021-06-07] MEDS ORDERED: Sodium Chloride 0.9% 10 ML SDV FLUSH ONE (14:36)
[2021-06-07] MEDS ORDERED: LORazepam 2 MG/ML SDV IVPUSH ONE (15:00)
[2021-06-07 18:36] VITALS: BP 176/107; PULSE 61
--- NOTE | 2021-06-07 18:42 | CRLCT ---
For Patients: As a result of the Century Cures Act, medical imaging exams and procedure reports are released immediately into your electronic medical record. You may view this report before your referring provider. If you have questions, please contact your health care provider. INDICATION: Chest pain, elevated D-dimer TECHNIQUE: CT chest pulmonary angiogram acquired with IV contrast. Approximately 56 cc of Omnipaque 350 contrast was administered intravenously. Multiplanar/MIP reformats were created. COMPARISON: CT chest 11/07/2019 FINDINGS: The heart is normal in size. There is no bowing of the intraventricular septum. The main pulmonary artery is normal in caliber. There are no filling defects within the pulmonary arteries to suggest a pulmonary embolus. The ascending thoracic aorta measures 3.8 cm, similar to prior exam. There is no suspicious mediastinal, hilar or axillary adenopathy. There is similar appearing biapical scarring. Minimal bibasilar subsegmental atelectasis or scarring. The lungs are otherwise clear without focal consolidation, pleural effusion or pneumothorax. There is a calcified granuloma within the left lower lobe. The visualized portions of the upper abdomen are unremarkable.] The bones are unremarkable. IMPRESSION: Negative for pulmonary embolus. Clear lungs. [] Please note that all CT scans at this facility use dose modulation, iterative reconstruction, and/or weight-based dosing when appropriate to reduce radiation dose to as low as reasonably achievable. Dictated by: Agnieszka Lyons MD @ 06/07/2021 18:41:45 (Electronically Signed)
== END 2021-06-07 19:16 | disposition home or self-care (01) ==
LOC: JP.ED 11:24
DX: R07.89 Other chest pain (principal); I10 Essential (primary) hypertension; J45.909 Unspecified asthma, uncomplicated; Z88.0 Allergy status to penicillin; Z88.5 Allergy status to narcotic agent; Z88.8 Allergy status to other drugs, medicaments and biological substances; Z79.899 Other long term (current) drug therapy
CPT/HCPCS: 36415; 71275; 80053; 83605; 84484; 85025; 85379; 96372; 96374; 99285; J2060; J2270; J7030

== ENCOUNTER 2021-09-26 13:38 | Emergency (ER) | payer MEDICAID ==
[2021-09-26 14:04] VITALS: BP 171/107; PULSE 91
--- NOTE | 2021-09-26 14:54 | EDM.PDOC ---
ED HPI GENERAL MEDICAL PROBLEM - General Chief Complaint: Respiratory Problem Stated Complaint: SOB Time Seen by Provider: 09/26/21 14:47 Source of Information: Reports: Patient, Old Records, Provider History Limitations: Reports: No Limitations - History of Present Illness INITIAL COMMENTS - FREE TEXT/NARRATIVE: 60 yo female with some chronic lung dz and respiratory allergies was seen on 09/22/21 by Bruna Kahn at [facility]. At that visit she was found to have wheezing, elevated eosinophils, a normal total WBC ct, & negative Covid testing. She has since then been on an expectorant, prednisone, and Duonebs. She comes now to the ER complaining of SOB. Worse with exertion, associated with some fatigue. In addition she relates that she had about 30 min last night of chest pain with radiation to the R side of her neck with associated jaw pain. This resolved fully without tx. She tells me she has a very strong FHx of CAD. She has had a stress test in the past that did not show any abnormalities. Also, she describes difficulty swallowing over many months. She has to eat things like applesauce so she can get it down. Has lost over 30 lbs in the last yrs. Has had NG tubes in the past with various surgeries. Doesn't believe that any work up has been initiated for this dysphagia problem. Onset: Sudden Onset Date: 09/25/21 Duration: Minutes:, Resolved Prior to Arrival Location: Reports: Neck, Chest Quality: Reports: Other (squeezing) Severity: Moderate Improves with: Reports: Other (time) Worsens with: Reports: Other (unknown) Context: Reports: Other (See HPI) Associated Symptoms: Reports: Chest Pain, Shortness of Breath. 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) (none for her pain experienced last night, but is on meds for her lungs as in HPI) - Related Data Allergies Allergy/AdvReac Type Severity Reaction Status Date / Time adhesive Allergy Rash Verified 09/26/21 14:06 ketorolac [From Toradol] Allergy Confusion Verified 09/26/21 14:06 metoprolol Allergy Other Verified 09/26/21 14:06 milnacipran Allergy Other Verified 09/26/21 14:06 Penicillins Allergy Itching Verified 09/26/21 14:06 amlodipine AdvReac Other Verified 09/26/21 14:06 dog dander AdvReac Other Verified 09/26/21 14:06 esomeprazole AdvReac Itching Verified 09/26/21 14:06 Home Meds: Home Meds Gabapentin 300 mg PO BID 03/24/14 [History] Ipratropium [Atrovent 0.03% Nasal [place]] 1 spray NASIR TID 03/24/14 [History] LORazepam [Ativan] 2 tab PO BEDTIME 03/24/14 [History] lisinopriL [Prinivil] 20 mg PO BID 03/24/14 [History] traMADol [Ultram] 150 mg PO TID PRN 03/24/14 [History] Budesonide/Formoterol [Symbicort 160-4.5 MCG] 1 puff INH BID 08/16/17 [History] Cyclobenzaprine [Flexeril] 10 mg PO BEDTIME 11/07/19 [History] Dextroamphetamine/Amphetamine [Adderall 10 mg Tablet] 10 mg PO BID 11/07/19 [History] Esomeprazole [NexIUM] 40 mg PO BID 11/07/19 [History] Glycopyrrolate 2 mg PO DAILY 11/07/19 [History] Meloxicam 15 mg PO ASDIRECTED 11/07/19 [History] Sennosides [Senna] 2 tab PO BID 11/07/19 [History] Past Medical History HEENT History: Reports: Glaucoma, Impaired Vision, Other (See Below) Other HEENT History: deviated nasal septum chronic sinusitis TMJ arthralaiga Cardiovascular History: Reports: High Cholesterol, Hypertension Respiratory History: Reports: Asthma Gastrointestinal History: Reports: Diverticulosis, Other (See Below) Other Gastrointestinal History: daiphragmatic hernia, stomach ulcers requiring surgery Genitourinary History: Reports: None 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: , 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 , Other (See Below) 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: S/P BROOK-BSO cystic breast Musculoskeletal History: Reports: Back Pain, Chronic, Fibromyalgia, Other (See Below) Other Musculoskeletal History: spinal cord injury scoliosis Fx back bone spurs Neurological History: Reports: Concussion, Headaches, Chronic, Head Trauma, Other (See Below) Other Neuro History: insomnia Psychiatric History: Reports: ADD, Anxiety Hematologic History: Reports: Blood Transfusion(s) Dermatologic History: Reports: Other (See Below) - Infectious Disease History Infectious Disease History: Reports: Chicken Pox, Shingles - Past Surgical History Head Surgeries/Procedures: Reports: None HEENT Surgical History: Reports: Tonsillectomy Cardiovascular Surgical History: Reports: None Respiratory Surgical History: Reports: None GI Surgical History: Reports: Appendectomy, Other (See Below) Female Surgical History: Reports: Hysterectomy Neurological Surgical History: Reports: None Musculoskeletal Surgical History: Reports: Shoulder Surgery Dermatological Surgical History: Reports: None Social & Family History - Family History Cardiac: Reports: CAD, [place], Stent - Tobacco Use Tobacco Use Status *Q: Never Tobacco User Second Hand Smoke Exposure: Yes - Caffeine Use Caffeine Use: Reports: None - Recreational Drug Use Recreational Drug Use: No ED ROS GENERAL - Review of Systems Review Of Systems: See Below Constitutional: Reports: Fatigue, Weight Loss HEENT: Reports: No Symptoms Respiratory: Reports: Shortness of Breath. Denies: Cough, Sputum Cardiovascular: Reports: Dyspnea on Exertion. Denies: Edema, Syncope Endocrine: Reports: No Symptoms GI/Abdominal: Reports: Difficulty Swallowing (slowly worsening over time) : Reports: No Symptoms Musculoskeletal: Reports: No Symptoms Skin: Reports: No Symptoms Neurological: Reports: No Symptoms Psychiatric: Reports: Anxiety ED EXAM, GENERAL - Physical Exam Exam: See Below Exam Limited By: No Limitations General Appearance: Alert, WD/WN, No Apparent Distress Eye Exam: Bilateral Eye: Normal Inspection Ears: Normal External Exam, Normal Canal, Hearing Grossly Normal Ear Exam: Bilateral Ear: Auricle Normal, Canal Normal Nose: Normal Inspection, No Blood Throat/Mouth: Normal Inspection, Normal Lips, Normal Oropharynx, Normal Voice, No Airway Compromise Head: Atraumatic, Normocephalic Neck: Normal Inspection Respiratory/Chest: No Respiratory Distress, No Accessory Muscle Use, Wheezing (faint exp) Cardiovascular: Regular Rate, Rhythm, No Edema GI/Abdominal: Normal Bowel Sounds, Soft, Non-Tender, No Distention Back Exam: Normal Inspection. No: CVA Tenderness (R), CVA Tenderness (L) Extremities: Normal Inspection, Normal Range of Motion, Non-Tender, No Pedal Edema. No: Pedal Edema, Nestor's Sign Neurological: Alert, Oriented, CN II-XII Intact, Normal Cognition, No Motor/Sensory Deficits Psychiatric: Normal Affect, Normal Mood Skin Exam: Warm, Dry, Intact, Normal Color, No Rash Course - Vital Signs Last Recorded V/S: Last Vital Signs Temp 36.6 C 09/26/21 14:13 Pulse 91 09/26/21 14:13 Resp 16 09/26/21 14:13 BP 171/107 H 09/26/21 14:13 Pulse Ox 97 09/26/21 14:13 - Orders/Labs/Meds Labs: Laboratory Tests 09/26/21 09/26/21 09/26/21 Range/Units 14:53 14:58 14:58 WBC 10.5 (4.5-11.0) K/uL RBC 4.23 (3.30-5.50) M/uL Hgb 12.9 (12.0-15.0) g/dL Hct 38.2 (36.0-48.0) % MCV 90 (80-98) fL MCH 31 (27-31) pg MCHC 34 (32-36) % Plt Count 371 (150-400) K/uL Neut % (Auto) 69.1 H (36-66) % Lymph % (Auto) 15.5 L (24-44) % [place] % (Auto) 7.2 H (2-6) % Eos % (Auto) 7.4 H (2-4) % Baso % (Auto) 0.8 (0-1) % Sodium 128 L (140-148) mmol/L Potassium 4.6 (3.6-5.2) mmol/L Chloride 93 L (100-108) mmol/L Carbon Dioxide 25 (21-32) mmol/L Anion Gap 14.6 H (5.0-14.0) mmol/L BUN 13 (7-18) mg/dL Creatinine 0.9 (0.6-1.0) mg/dL Est Cr Clr Drug Dosing 51.26 mL/min Estimated GFR (MDRD) > 60 (>60) Glucose 85 (74-106) mg/dL Calcium 8.8 (8.5-10.1) mg/dL Troponin I (0.000-0.056) ng/mL C-Reactive Protein 3.27 H (0.0-0.3) mg/dL 09/26/21 Range/Units 14:58 WBC (4.5-11.0) K/uL RBC (3.30-5.50) M/uL Hgb (12.0-15.0) g/dL Hct (36.0-48.0) % MCV (80-98) fL MCH (27-31) pg MCHC (32-36) % Plt Count (150-400) K/uL Neut % (Auto) (36-66) % Lymph % (Auto) (24-44) % [place] % (Auto) (2-6) % Eos % (Auto) (2-4) % Baso % (Auto) (0-1) % Sodium (140-148) mmol/L Potassium (3.6-5.2) mmol/L Chloride (100-108) mmol/L Carbon Dioxide (21-32) mmol/L Anion Gap (5.0-14.0) mmol/L BUN (7-18) mg/dL Creatinine (0.6-1.0) mg/dL Est Cr Clr Drug Dosing mL/min Estimated GFR (MDRD) (>60) Glucose (74-106) mg/dL Calcium (8.5-10.1) mg/dL Troponin I < 0.017 (0.000-0.056) ng/mL C-Reactive Protein (0.0-0.3) mg/dL Departure - Departure Time of Disposition: 16:05 Disposition: Home, Self-Care 01 Condition: Fair Clinical Impression: Anginal equivalent, BURDEN (dyspnea on exertion) Dysphagia Qualifiers: Dysphagia type: esophageal phase Qualified Code(s): R13.19 - Other dysphagia - Discharge Information *PRESCRIPTION DRUG MONITORING PROGRAM REVIEWED*: Not Applicable *COPY OF PRESCRIPTION DRUG MONITORING REPORT IN PATIENT MORIAH: Not Applicable Referrals: Malissa Shaw PA-C [Primary Care Provider] - Forms: ED Department Discharge Additional Instructions: Continue your current medications. Follow up with cardiology to make sure that your symptoms are not coming from your heart. Once you get cleared from a heart stand point ask your doctor for a referral to see if you need esophagus dilation for your difficulty swallowing. Return as needed. Sepsis Event Note (ED) - Evaluation Sepsis Screening Result: No Definite Risk - Focused Exam Vital Signs: Vital Signs Temp Pulse Resp BP Pulse Ox 09/26/21 14:13 36.6 C 91 16 171/107 H 97 09/26/21 14:01 36.6 C 91 16 171/107 H 97
== END 2021-09-26 16:30 | disposition home or self-care (01) ==
LOC: JP.ED 13:38
DX: I20.8 Other forms of angina pectoris (principal); R06.02 Shortness of breath; R13.19 Other dysphagia; E78.00 Pure hypercholesterolemia, unspecified; I10 Essential (primary) hypertension; Z91.048 Other nonmedicinal substance allergy status; Z88.0 Allergy status to penicillin; Z88.6 Allergy status to analgesic agent; Z91.09 Other allergy status, other than to drugs and biological substances; Z88.8 Allergy status to other drugs, medicaments and biological substances
CPT/HCPCS: 36415; 80048; 84484; 85025; 86140; 99284

== ENCOUNTER 2021-10-28 00:20 | Emergency (ER) | payer MEDICAID ==
[2021-10-28 00:38] VITALS: BP 119/71; PULSE 80
--- NOTE | 2021-10-28 00:54 | EDM.PDOC ---
ED HPI GENERAL MEDICAL PROBLEM - General Chief Complaint: Chest Pain Stated Complaint: CHEST PAIN Time Seen by Provider: 10/28/21 00:51 Source of Information: Reports: Patient, Old Records, RN History Limitations: Reports: No Limitations - History of Present Illness INITIAL COMMENTS - FREE TEXT/NARRATIVE: 60 yo female presents with pain all over. Has a hx she says of fibromyalgia, but says this is different. Her pain is in the back of her neck, her L hand, her L knee and her L ant/lateral ribs. She is already on meloxicam, gabapentin, max dosing of tramadol, and muscle relaxers. She has no associated sx's with these pains. She admits her knee pain is not new, just worse tonight. She alleges that acetaminophen does "not work for her". She is a very rambling historian and does not demonstrate good insight into her health problems. Onset: Today Onset Date: 10/28/21 Duration: Hour(s):, Constant Location: Reports: Generalized Quality: Reports: Ache Severity: Moderate Improves with: Reports: None Worsens with: Reports: Other (unknown) Context: Reports: Other (See HPI) Associated Symptoms: Reports: No Other Symptoms Treatments MDS NURSE: Reports: Other (see below) (usual meds) Chest Pain Score (Numeric/FACES): 7 - Related Data Allergies Allergy/AdvReac Type Severity Reaction Status Date / Time adhesive Allergy Rash Verified 10/28/21 00:38 ketorolac [From Toradol] Allergy Confusion Verified 10/28/21 00:38 metoprolol Allergy Other Verified 10/28/21 00:38 milnacipran Allergy Other Verified 10/28/21 00:38 Penicillins Allergy Itching Verified 10/28/21 00:38 amlodipine AdvReac Other Verified 10/28/21 00:38 dog dander AdvReac Other Verified 10/28/21 00:38 esomeprazole AdvReac Itching Verified 10/28/21 00:38 Home Meds: Home Meds Gabapentin 300 mg PO BID 03/24/14 [History] LORazepam [Ativan] 1 mg PO BEDTIME 03/24/14 [History] lisinopriL [Prinivil] 20 mg PO BID 03/24/14 [History] traMADol [Ultram] 150 mg PO 5XDAY PRN 03/24/14 [History] Cyclobenzaprine [Flexeril] 20 - 30 mg PO BEDTIME PRN 11/07/19 [History] Dextroamphetamine/Amphetamine [Adderall 10 mg Tablet] 10 mg PO DAILY 11/07/19 [History] Glycopyrrolate 2 mg PO DAILY 11/07/19 [History] Meloxicam 15 mg PO ASDIRECTED 11/07/19 [History] Sennosides [Senna] 2 tab PO DAILY 11/07/19 [History] Albuterol Sulfate [Albuterol Sulfate Hfa] 2 puff IH QID 10/05/21 [History] Aspirin/Acetaminophen/Caffeine [Extraprin Tablet] 2 tab PO Q4H PRN 10/05/21 [History] Budesonide [Pulmicort] 0.5 mg IH BID 10/05/21 [History] Ca Carb & Gluc/Mag Ox & Gluc [Calcium Magnesium Caplet] 1 each PO BID 10/05/21 [History] Cholecalciferol (Vitamin D3) [Vitamin D3] 1,000 unit PO DAILY 10/05/21 [History] Docusate Sodium [Colace] 200 mg PO DAILY 10/05/21 [History] Ferrous Gluconate 324 mg PO BID 10/05/21 [History] Fluticasone Propionate [Flonase] 2 spray NS DAILY 10/05/21 [History] Ipratropium [Atrovent 0.06% Nasal [place]] 2 spray NS BID 10/05/21 [History] Ipratropium/Albuterol Sulfate [Iprat-Albut 0.5-3(2.5) mg/3 ml] 3 ml IH Q4H [History] Latanoprost/Pf [Latanoprost 0.005% Eye Drop] 1 drop OP BEDTIME 10/05/21 [History] Magnesium Oxide 250 mg PO DAILY 10/05/21 [History] Montelukast [Singulair] 10 mg PO BEDTIME 10/05/21 [History] Multivitamin 1 each PO DAILY 10/05/21 [History] Pantoprazole [ProTONIX] 40 mg PO BID 10/05/21 [History] Pilocarpine [Salagen] 5 mg PO TID 10/05/21 [History] bisacodyL [Dulcolax] 15 mg PO BEDTIME 10/05/21 [History] estradioL [Estradiol] 0.5 mg PO DAILY 10/05/21 [History] guaiFENesin [Mucinex] 600 mg PO BID 10/05/21 [History] metroNIDAZOLE [metroNIDAZOLE 0.75% Gel] 45 gm .XX ASDIRECTED 10/05/21 [History] predniSONE 10 mg PO BID #10 tablet 10/28/21 [Rx] Past Medical History HEENT History: Reports: Glaucoma, Impaired Vision, Other (See Below) Other HEENT History: deviated nasal septum chronic sinusitis TMJ arthralaiga Cardiovascular History: Reports: High Cholesterol, Hypertension Respiratory History: Reports: Asthma Gastrointestinal History: Reports: Diverticulosis, Other (See Below) Other Gastrointestinal History: daiphragmatic hernia, stomach ulcers requiring surgery Genitourinary History: Reports: None RN PERIOPERATIVE History: Reports: , Spontaneous , Other (See Below) Other RN PERIOPERATIVE History: S/P BROOK-BSO cystic breast Musculoskeletal History: Reports: Back Pain, Chronic, Fibromyalgia, Other (See B yamile) Other Musculoskeletal History: spinal cord injury scoliosis Fx back bone spurs Neurological History: Reports: Concussion, Headaches, Chronic, Head Trauma, Other (See Below) Other Neuro History: insomnia, patient reports she "may have had a stroke" Psychiatric History: Reports: ADD, Anxiety Hematologic History: Reports: Blood Transfusion(s) Dermatologic History: Reports: Other (See Below) Other Dermatologic History: rosacea - Infectious Disease History Infectious Disease History: Reports: Chicken Pox, Shingles - Past Surgical History Head Surgeries/Procedures: Reports: None HEENT Surgical History: Reports: Tonsillectomy GI Surgical History: Reports: Appendectomy, Other (See Below) Female Surgical History: Reports: Hysterectomy Musculoskeletal Surgical History: Reports: Shoulder Surgery Social & Family History - Family History Cardiac: Reports: CAD, [place], Stent - Tobacco Use Tobacco Use Status *Q: Never Tobacco User - Caffeine Use Caffeine Use: Reports: None - Recreational Drug Use Recreational Drug Use: No ED ROS GENERAL - Review of Systems Review Of Systems: See Below Constitutional: Reports: No Symptoms HEENT: Reports: No Symptoms Respiratory: Reports: No Symptoms Cardiovascular: Reports: Chest Pain (ribs) GI/Abdominal: Reports: Nausea (at times) : Reports: No Symptoms Musculoskeletal: Reports: Neck Pain, Joint Pain (L hand, L knee) Skin: Reports: No Symptoms Neurological: Reports: No Symptoms Psychiatric: Reports: Anxiety ED EXAM, GENERAL - Physical Exam Exam: See Below Exam Limited By: No Limitations General Appearance: Alert, WD/WN, No Apparent Distress Eye Exam: Bilateral Eye: Normal Inspection Ears: Normal External Exam, Normal Canal, Hearing Grossly Normal Ear Exam: Bilateral Ear: Auricle Normal, Canal Normal Nose: Normal Inspection, No Blood Throat/Mouth: Normal Inspection, Normal Lips, Normal Oropharynx, Normal Voice, No Airway Compromise Head: Atraumatic, Normocephalic Neck: Normal Inspection Respiratory/Chest: No Respiratory Distress, Lungs Clear, Normal Breath Sounds, No Accessory Muscle Use Cardiovascular: Regular Rate, Rhythm, No Edema GI/Abdominal: Normal Bowel Sounds, Soft, Non-Tender, No Distention Back Exam: Normal Inspection. No: CVA Tenderness (R), CVA Tenderness (L) Extremities: Normal Inspection, Normal Range of Motion, Non-Tender Neurological: Alert, Oriented, CN II-XII Intact, Normal Cognition, No Motor/Sensory Deficits Psychiatric: Normal Affect, Normal Mood Skin Exam: Warm, Dry, Intact, Normal Color, No Rash #1 Interpretation EKG Date: 10/28/21 Time: 00:35 Rhythm: NSR Rate (Beats/Min): 75 [place]: Normal P-Wave: Present QRS: Normal ST-T: Normal QT: Normal Comparison: Change From Previous EKG (T waves less peaked today than on prior EKG.) Course - Vital Signs Last Recorded V/S: Last Vital Signs Temp 36.5 C 10/28/21 00:36 Pulse 80 10/28/21 00:36 Resp 17 10/28/21 00:36 BP 119/71 10/28/21 00:36 Pulse Ox 95 10/28/21 00:36 - Orders/Labs/Meds Orders: Active Orders 24 hr Category Date Time Status Cardiac Monitoring [RC] .As Directed Care 10/28/21 00:43 Active EKG 12 Lead [EK] Routine Ther 10/28/21 00:42 Ordered Meds: Medications Discontinued Medications Generic Name Dose Route Start Last Admin Trade Name Freq PRN Reason Stop Dose Admin Prednisone 10 mg 10/28/21 01:09 Prednisone 10 Mg Tab PO 10/28/21 01:10 ONETIME ONE Departure - Departure Time of Disposition: 01:22 Disposition: Home, Self-Care 01 Condition: Fair Clinical Impression: Pain Prescriptions: predniSONE 10 mg PO BID #10 tablet Instructions: Acute Pain, Adult Referrals: PCP,None [Primary Care Provider] - Forms: ED Department Discharge Additional Instructions: Take the prednisone as directed with food. Recheck early next week in the clinic, call for an appt. Sepsis Event Note (ED) - Evaluation Sepsis Screening Result: No Definite Risk - Focused Exam Vital Signs: Vital Signs Temp Pulse Resp BP Pulse Ox 10/28/21 00:36 36.5 C 80 17 119/71 95 - My Orders Last 24 Hours: My Active Orders 10/28/21 00:42 EKG 12 Lead [EK] Routine 10/28/21 00:43 Cardiac Monitoring [RC] .As Directed - Assessment/Plan Last 24 Hours: My Active Orders 10/28/21 00:42 EKG 12 Lead [EK] Routine 10/28/21 00:43 Cardiac Monitoring [RC] .As Directed
[2021-10-28] MEDS ORDERED: predniSONE 10 MG Tab PO ONE (01:09)
== END 2021-10-28 01:30 | disposition home or self-care (01) ==
LOC: JP.ED 00:20
DX: M54.2 Cervicalgia (principal); M25.562 Pain in left knee; R07.81 Pleurodynia; M79.642 Pain in left hand; Z88.6 Allergy status to analgesic agent; Z88.0 Allergy status to penicillin; Z88.8 Allergy status to other drugs, medicaments and biological substances; Z79.899 Other long term (current) drug therapy
CPT/HCPCS: 93005; 99284; J7512

== ENCOUNTER 2022-03-07 08:06 | Day surgery (SDC) | payer MEDICAID ==
[2022-03-07] MEDS ORDERED: Dextrose 5%-Lactated Ringers 1,000 ML IV SCH (09:00)
[2022-03-07] MEDS ORDERED: Midazolam 1 MG/ML 2 ML SDV ONE (09:16)
[2022-03-07] MEDS ORDERED: fentaNYL 100 MCG/2 ML SDV ONE (09:16)
[2022-03-07] MEDS ORDERED: Propofol 200 MG/20 ML SDV ONE (09:16)
[2022-03-07 11:09] VITALS: BP 124/95; PULSE 83
== END 2022-03-07 11:15 | disposition home or self-care (01) ==
LOC: JP.SDS 08:06
PROVIDERS: ATTEND Family Medicine
DX: Z12.11 Encounter for screening for malignant neoplasm of colon (principal); I10 Essential (primary) hypertension; J43.9 Emphysema, unspecified; K21.9 Gastro-esophageal reflux disease without esophagitis; Z88.0 Allergy status to penicillin; Z90.49 Acquired absence of other specified parts of digestive tract; Z90.711 Acquired absence of uterus with remaining cervical stump; Z98.890 Other specified postprocedural states; Z88.3 Allergy status to other anti-infective agents; Z88.6 Allergy status to analgesic agent; Z88.8 Allergy status to other drugs, medicaments and biological substances
CPT/HCPCS: J2250; J2704; J3010; J7121

== ENCOUNTER 2022-05-08 10:47 | Emergency (ER) | payer MEDICAID ==
[2022-05-08] MEDS ORDERED: Sodium Chloride 0.9% 10 ML Syringe FLUSH PRN (12:11)
[2022-05-08] MEDS ORDERED: Sodium Chloride 0.9% 1,000 ML IV SCH (12:15)
[2022-05-08] MEDS ORDERED: Iopamidol 755 Mg/ML 100 ML Bottle IV SCH (12:45)
[2022-05-08] MEDS ORDERED: Sodium Chloride 0.9% 100 ML IV SCH (12:45)
[2022-05-08 12:57] LABS: ESTIMATED GFR 50 (>60)
[2022-05-08 13:02] LABS: TROPONIN I HIGH SENSITIVITY 63.2 pg/mL (<=60.3)
[2022-05-08 14:16] VITALS: BP 179/113; PULSE 90
[2022-05-08] MEDS ORDERED: LORazepam 1 MG Tab PO ONE (15:06)
== END 2022-05-08 15:50 | disposition home or self-care (01) ==
LOC: JP.ED 10:47
DX: G45.9 Transient cerebral ischemic attack, unspecified (principal); I11.0 Hypertensive heart disease with heart failure; I50.9 Heart failure, unspecified; J44.9 Chronic obstructive pulmonary disease, unspecified; K21.9 Gastro-esophageal reflux disease without esophagitis; Z91.048 Other nonmedicinal substance allergy status; Z88.1 Allergy status to other antibiotic agents; Z88.8 Allergy status to other drugs, medicaments and biological substances; Z88.0 Allergy status to penicillin; Z91.09 Other allergy status, other than to drugs and biological substances; Z79.899 Other long term (current) drug therapy; Z79.82 Long term (current) use of aspirin
CPT/HCPCS: 36415; 70450; 70450-26; 70496; 70496-26; 70498; 70498-26; 72125; 72125-26; 80053; 83605; 83880; 84484; 85025; 93005; 93010; 96360; 96361; 99284; 99284-25; A9270-GY; J3490; J7030; Q9967

== ENCOUNTER 2022-10-30 10:33 | Emergency (ER) | payer MEDICAID ==
[2022-10-30] MEDS ORDERED: Sodium Chloride 0.9% 1,000 ML IV ONE (11:49)
[2022-10-30] MEDS ORDERED: HYDROmorphone 0.5 MG/0.5 ML Syringe IVPUSH ONE ×2 (11:49→13:06)
[2022-10-30] MEDS ORDERED: Ondansetron 4 MG/2 ML SDV IVPUSH ONE (11:49)
[2022-10-30] MEDS ORDERED: Iopamidol 612 MG/ML 100 ML Bottle IV PRN (11:59)
[2022-10-30] MEDS ORDERED: Sodium Chloride 0.9% 100 ML IV SCH (12:00)
[2022-10-30 12:02] LABS: ESTIMATED GFR 63 mL/min (>60)
[2022-10-30] MEDS ORDERED: Lidocaine 1% 5 ML VIAL INJECT ONE (12:24)
[2022-10-30 12:45] VITALS: BP 183/120; PULSE 96
[2022-10-31] MEDS ORDERED: Pantoprazole 40 MG Tab.CR PO ONE (13:55)
== END 2022-10-30 14:25 | disposition home or self-care (01) ==
LOC: JP.ED 10:33
DX: R10.84 Generalized abdominal pain (principal); J18.9 Pneumonia, unspecified organism; R11.2 Nausea with vomiting, unspecified; J44.9 Chronic obstructive pulmonary disease, unspecified; K21.9 Gastro-esophageal reflux disease without esophagitis; Z91.048 Other nonmedicinal substance allergy status; Z88.1 Allergy status to other antibiotic agents; Z88.0 Allergy status to penicillin; Z91.09 Other allergy status, other than to drugs and biological substances; Z88.8 Allergy status to other drugs, medicaments and biological substances; Z79.899 Other long term (current) drug therapy; Z87.11 Personal history of peptic ulcer disease
CPT/HCPCS: 36415; 74177; 80053; 83605; 83690; 85025; 86140; 96361; 96374; 96375; 96376; 99284; J1170; J2405; J3490; J7030; Q9967

== ENCOUNTER 2022-12-24 16:21 | Inpatient (IN) | payer MEDICAID ==
[2022-12-24] MEDS ORDERED: LORazepam 2 MG/ML SDV IVPUSH ONE (17:19)
[2022-12-24] MEDS ORDERED: Sodium Chloride 0.9% 500 ML IV ONE (17:20)
[2022-12-24] MEDS ORDERED: Sodium Chloride 0.9% 10 ML Syringe FLUSH PRN (17:20)
[2022-12-24] MEDS ORDERED: methylPREDNISolone Sodium Succinate 40 MG/1 ML SDV IVPUSH ONE (17:20)
[2022-12-24 17:29] LABS: CORONAVIRUS COVID-19 NAA NEGATIVE (NEGATIVE)
[2022-12-24 18:02] LABS: ESTIMATED GFR 71 mL/min (>60); TROPONIN I HIGH SENSITIVITY 7.1 pg/mL (<=60.3)
[2022-12-24] MEDS ORDERED: Sodium Chloride 0.9% 10 ML Syringe FLUSH ONE (18:35)
[2022-12-24] MEDS ORDERED: Iopamidol 755 Mg/ML 100 ML Bottle IV SCH (18:45)
[2022-12-24] MEDS ORDERED: Sodium Chloride 0.9% 75 ML IV SCH (18:45)
[2022-12-24] MEDS ORDERED: Levofloxacin 250 MG Tab PO ONE (20:29)
[2022-12-24] MEDS ORDERED: Gabapentin 300 MG Cap PO SCH (22:31)
[2022-12-24] MEDS ORDERED: Latanoprost 0.005% Ophth Soln 2.5 ML Bottle EYEBOTH SCH (22:31)
[2022-12-24] MEDS ORDERED: LORazepam 2 MG/ML SDV IV PRN (23:00)
[2022-12-24] MEDS: Lisinopril 20 MG Tab PO SCH (23:33)
[2022-12-24] MEDS: Albuterol/Ipratropium 3.0-0.5 MG/3 ML Neb Soln NEB SCH (23:33)
[2022-12-24] MEDS: Aspirin 325 MG Tab.EC PO SCH (23:33)
[2022-12-24] MEDS: Gabapentin 300 MG Cap PO SCH (23:33)
[2022-12-24] MEDS: Sennosides 8.6 MG Tab PO SCH (23:34)
[2022-12-24] MEDS: Pantoprazole 40 MG Vial IV SCH (23:35)
[2022-12-24] MEDS: methylPREDNISolone Sodium Succinate 40 MG/1 ML SDV IVPUSH SCH (23:35)
[2022-12-24] MEDS: cefTRIAXone 1 GM in Sodium Chloride 0.9% 50 ML IV SCH (23:35)
[2022-12-25] MEDS: Ondansetron 4 MG Tab.DIS PO PRN (00:27)
[2022-12-25] MEDS: Albuterol/Ipratropium 3.0-0.5 MG/3 ML Neb Soln NEB SCH ×5 (05:32→20:50)
[2022-12-25] MEDS: methylPREDNISolone Sodium Succinate 40 MG/1 ML SDV IVPUSH SCH ×4 (05:32→22:51)
[2022-12-25] MEDS: Ferrous Sulfate 325 MG Tab PO SCH ×3 (08:55→20:50)
[2022-12-25] MEDS: Magnesium Oxide 400 MG Tab PO SCH (08:55)
[2022-12-25] MEDS: Estradiol 0.5 MG Tab PO SCH (08:55)
[2022-12-25] MEDS: Lisinopril 20 MG Tab PO SCH ×3 (08:55→20:51)
[2022-12-25] MEDS ORDERED: Aspirin 325 MG Tab.EC PO SCH (09:00)
[2022-12-25] MEDS ORDERED: PILOCARPINE 5 MG PO SCH (09:00)
[2022-12-25] MEDS ORDERED: Sennosides 8.6 MG Tab PO SCH (09:00)
[2022-12-25] MEDS ORDERED: Lisinopril 20 MG Tab PO SCH (09:00)
[2022-12-25] MEDS: oxyCODONE 5 MG Tab PO PRN (09:03)
[2022-12-25] MEDS: Albuterol 0.083% 2.5 MG/3 ML Neb Soln NEB PRN ×2 (10:22→16:42)
[2022-12-25] MEDS: Pantoprazole 40 MG Vial IV SCH ×2 (10:24→22:45)
[2022-12-25] MEDS: guaiFENesin/Dextromethorphan 100-10 MG/5 ML Soln 10 ML Cup PO PRN ×2 (11:15→19:46)
[2022-12-25] MEDS: Morphine 2 MG/ML SYRINGE IVPUSH PRN ×2 (13:21→16:43)
[2022-12-25] MEDS: Gabapentin 300 MG Cap PO SCH ×2 (19:35→20:51)
[2022-12-25] MEDS: Aspirin 325 MG Tab.EC PO SCH ×2 (19:36→20:50)
[2022-12-25] MEDS: Sennosides 8.6 MG Tab PO SCH ×2 (19:38→20:51)
[2022-12-25] MEDS: Latanoprost 0.005% Ophth Soln 2.5 ML Bottle EYEBOTH SCH ×2 (19:38→20:51)
[2022-12-25] MEDS: LORazepam 1 MG Tab PO SCH ×2 (19:46→20:50)
[2022-12-25] MEDS: Levofloxacin/Dextrose 5%-Water 750 MG in Premix Bag 1 BAG IV SCH (21:06)
[2022-12-25] MEDS: Bisacodyl 5 MG Tab PO SCH (21:06)
[2022-12-25] MEDS: cefTRIAXone 1 GM in Sodium Chloride 0.9% 50 ML IV SCH (22:45)
[2022-12-26] MEDS: Ondansetron 4 MG Tab.DIS PO PRN ×2 (02:21→11:40)
[2022-12-26] MEDS: guaiFENesin/Dextromethorphan 100-10 MG/5 ML Soln 10 ML Cup PO PRN (02:21)
[2022-12-26] MEDS: methylPREDNISolone Sodium Succinate 40 MG/1 ML SDV IVPUSH SCH ×3 (04:57→16:18)
[2022-12-26] MEDS: oxyCODONE 5 MG Tab PO PRN ×2 (04:57→11:40)
[2022-12-26] MEDS: Albuterol/Ipratropium 3.0-0.5 MG/3 ML Neb Soln NEB SCH ×4 (07:29→20:53)
[2022-12-26] MEDS: Lisinopril 20 MG Tab PO SCH ×2 (09:29→20:47)
[2022-12-26] MEDS: Estradiol 0.5 MG Tab PO SCH (09:30)
[2022-12-26] MEDS: Ferrous Sulfate 325 MG Tab PO SCH ×2 (09:30→20:48)
[2022-12-26] MEDS: Magnesium Oxide 400 MG Tab PO SCH (09:30)
[2022-12-26] MEDS: Pantoprazole 40 MG Vial IV SCH (09:33)
[2022-12-26] MEDS: Acetylcysteine 20% 200 MG/ML 4 ML Nebulizer Soln SDV NEB SCH ×2 (14:48→20:44)
[2022-12-26] MEDS: Albuterol 0.083% 2.5 MG/3 ML Neb Soln NEB PRN (14:48)
[2022-12-26] MEDS: Benzonatate 100 MG Cap PO PRN (16:17)
[2022-12-26] MEDS: Sennosides 8.6 MG Tab PO SCH (20:47)
[2022-12-26] MEDS: Aspirin 325 MG Tab.EC PO SCH (20:47)
[2022-12-26] MEDS: Bisacodyl 5 MG Tab PO SCH (20:47)
[2022-12-26] MEDS: Gabapentin 300 MG Cap PO SCH (20:48)
[2022-12-26] MEDS: Latanoprost 0.005% Ophth Soln 2.5 ML Bottle EYEBOTH SCH (20:55)
[2022-12-26] MEDS: Levofloxacin/Dextrose 5%-Water 750 MG in Premix Bag 1 BAG IV SCH ×2 (20:56→21:00)
[2022-12-26] MEDS: LORazepam 1 MG Tab PO SCH (20:56)
[2022-12-26] MEDS ORDERED: prednisoLONE 15 MG/5 ML Soln UD Cup PO ONE (22:46)
[2022-12-26] MEDS ORDERED: Levofloxacin 250 MG Tab PO ONE (22:46)
[2022-12-26] MEDS ORDERED: cefTRIAXone 1 GM, Lidocaine 1% 2.1 ML IM ONE ×2 (22:46)
[2022-12-26] MEDS ORDERED: Levofloxacin 500 MG Tab PO ONE (22:46)
[2022-12-26] MEDS ORDERED: Pantoprazole 40 MG Tab.CR PO STA (23:44)
[2022-12-27] MEDS: Pantoprazole 40 MG Vial IV SCH (00:11)
[2022-12-27] MEDS: Acetylcysteine 20% 200 MG/ML 4 ML Nebulizer Soln SDV NEB SCH ×3 (07:08→16:17)
[2022-12-27] MEDS: Albuterol/Ipratropium 3.0-0.5 MG/3 ML Neb Soln NEB SCH ×4 (07:08→20:17)
[2022-12-27] MEDS: Docusate Sodium 100 MG Cap PO PRN ×2 (08:11→16:57)
[2022-12-27] MEDS: Ferrous Sulfate 325 MG Tab PO SCH ×2 (08:11→20:22)
[2022-12-27] MEDS: Magnesium Oxide 400 MG Tab PO SCH (08:11)
[2022-12-27] MEDS: Estradiol 0.5 MG Tab PO SCH (08:12)
[2022-12-27] MEDS: Lisinopril 20 MG Tab PO SCH ×2 (08:12→20:22)
[2022-12-27] MEDS: oxyCODONE 5 MG Tab PO PRN ×3 (08:18→16:57)
[2022-12-27] MEDS: Acetaminophen 325 MG Tab PO PRN ×2 (12:40→16:57)
[2022-12-27] MEDS: Benzonatate 100 MG Cap PO PRN (13:03)
[2022-12-27] MEDS ORDERED: Polyethylene Glycol 3350 Powder 17 GM Packet PO ONE (14:23)
[2022-12-27] MEDS ORDERED: Sodium Phosphate,Monobasic/Sodium Phosphate,Dibasic Enema 133 ML Bottle RECTAL PRN (14:23)
[2022-12-27] MEDS: Bisacodyl 10 MG Supp RECTAL ONE ×2 (15:35→15:36)
[2022-12-27] MEDS: Bisacodyl 5 MG Tab PO SCH (20:21)
[2022-12-27] MEDS: LORazepam 1 MG Tab PO SCH (20:22)
[2022-12-27] MEDS: Gabapentin 300 MG Cap PO SCH (20:22)
[2022-12-27] MEDS: Sennosides 8.6 MG Tab PO SCH (20:22)
[2022-12-27] MEDS: Aspirin 325 MG Tab.EC PO SCH (20:24)
[2022-12-27] MEDS: Latanoprost 0.005% Ophth Soln 2.5 ML Bottle EYEBOTH SCH (20:25)
[2022-12-27] MEDS ORDERED: Pantoprazole 40 MG Tab.CR PO SCH (21:00)
[2022-12-27] MEDS ORDERED: Levofloxacin 250 MG Tab PO SCH (22:00)
[2022-12-28 04:23] VITALS: PULSE 86
[2022-12-28] MEDS: oxyCODONE 5 MG Tab PO PRN (04:29)
[2022-12-28] MEDS: Albuterol/Ipratropium 3.0-0.5 MG/3 ML Neb Soln NEB SCH ×2 (07:25→10:55)
[2022-12-28] MEDS: Ondansetron 4 MG Tab.DIS PO PRN (07:31)
[2022-12-28] MEDS ORDERED: predniSONE 20 MG Tab PO SCH (08:00)
[2022-12-28] MEDS: Magnesium Oxide 400 MG Tab PO SCH (09:13)
[2022-12-28] MEDS: Estradiol 0.5 MG Tab PO SCH (09:13)
[2022-12-28] MEDS: Ferrous Sulfate 325 MG Tab PO SCH (09:13)
[2022-12-28] MEDS: Lisinopril 20 MG Tab PO SCH (09:13)
[2022-12-28 09:14] VITALS: BP 134/62
== END 2022-12-28 11:15 | disposition home or self-care (01) | DRG 190 ==
LOC: JP.ED 16:21 → JP.MS 21:54
PROVIDERS: ADMIT Internal Medicine; ATTEND Internal Medicine
DX: J43.1 Panlobular emphysema (principal); J18.9 Pneumonia, unspecified organism; D80.9 Immunodeficiency with predominantly antibody defects, unspecified; E87.1 Hypo-osmolality and hyponatremia; I13.0 Hypertensive heart and chronic kidney disease with heart failure and stage 1 through stage 4 chronic kidney disease, or unspecified chronic kidney disease; F41.9 Anxiety disorder, unspecified; F98.8 Other specified behavioral and emotional disorders with onset usually occurring in childhood and adolescence; K59.09 Other constipation; K21.9 Gastro-esophageal reflux disease without esophagitis; H54.7 Unspecified visual loss; I50.9 Heart failure, unspecified; I73.9 Peripheral vascular disease, unspecified; Z91.09 Other allergy status, other than to drugs and biological substances; Z78.9 Other specified health status; Z88.0 Allergy status to penicillin; Z88.8 Allergy status to other drugs, medicaments and biological substances; Z79.82 Long term (current) use of aspirin; Z79.899 Other long term (current) drug therapy; Z86.718 Personal history of other venous thrombosis and embolism; Z79.01 Long term (current) use of anticoagulants; Z90.710 Acquired absence of both cervix and uterus; Z90.49 Acquired absence of other specified parts of digestive tract
CPT/HCPCS: 0241U; 36415; 71045; 71045-26; 71275; 80048; 80053; 81001; 82150; 83690; 83880; 84443; 84484; 85025; 87040; 93005; 93010; 94640; 96374; 96375; 97161-GP; 99285; 99285-25; A9270-GY; C9113; J0696; J1956; J2060; J2270; J2920; J3490; J7040; J7512; J7620; Q0162; Q9967

== ENCOUNTER 2023-05-18 10:28 | Emergency (ER) | payer MEDICAID ==
[2023-05-18 11:03] VITALS: BP 159/104; PULSE 88
[2023-05-18] MEDS ORDERED: fentaNYL 25 MCG/HR Transdermal Patch TRDERM SCH (12:00)
== END 2023-05-18 12:30 | disposition home or self-care (01) ==
LOC: JP.ED 10:28
DX: G89.18 Other acute postprocedural pain (principal); M25.562 Pain in left knee; J44.9 Chronic obstructive pulmonary disease, unspecified; I10 Essential (primary) hypertension; I25.2 Old myocardial infarction; K21.9 Gastro-esophageal reflux disease without esophagitis; M19.90 Unspecified osteoarthritis, unspecified site; Z79.82 Long term (current) use of aspirin; Z79.899 Other long term (current) drug therapy; Z91.048 Other nonmedicinal substance allergy status; Z88.0 Allergy status to penicillin; Z88.1 Allergy status to other antibiotic agents; Z88.8 Allergy status to other drugs, medicaments and biological substances
CPT/HCPCS: 93971; 99283; A9270